=== PATIENT | female | born 1950 | race Caucasian/White ===

== ENCOUNTER → 2016-07-20 | Outpatient (CLI) | payer OTHER, BC ==
--- NOTE | 2016-07-20 15:36 | MAMMOGRAPHY REPORT ---
BILATERAL DIGITAL SCREENING MAMMOGRAM WITH CAD: 07/20/2016 CLINICAL HISTORY: Routine screening. Patient has no complaints. TECHNIQUE: Current study was also evaluated with a Computer Aided Detection (CAD) system. Bilatera l CC and MLO views were obtained. COMPARISON: Comparison is made to exams dated: 04/01/2015 mammogram, 05/20/2013 mammogram, 2 mammogram, 04/19/2011 mammogram, and 03/01/2010 mammogram - [facility]. BREAST COMPOSITION: The tissue of both breasts is heterogeneously dense, which may obscure small ma sses. FINDINGS: No suspicious masses, calcifications, or areas of architectural distortion are noted in e ither breast. There has been no significant interval change compared to prior exams. Scattered bilat eral benign-appearing calcifications are not significantly changed. IMPRESSION: ACR BI-RADS CATEGORY 2: BENIGN There is no mammographic evidence of malignancy. A 1 year screening mammogram is recommended. The p atient will receive written notification of the results. Approximately 10% of breast cancers are not detected with mammography. A negative mammographic repor t should not delay biopsy if a clinically suggestive mass is present. Lidia Dyer M.D. ah/:07/20/2016 14:16:33 Tape Sewing Machine Operator: Lilian GILMAN(R)(M), [facility] letter sent: Normal 1/2 BI-RADS Code: ACR BI-RADS Category 2: Benign
== END | disposition home or self-care (01) ==
LOC: C.MAMM 13:42
PROVIDERS: ATTEND Nurse Practitioner
DX: Z12.31 Encounter for screening mammogram for malignant neoplasm of breast (principal); M81.0 Age-related osteoporosis without current pathological fracture; M85.851 Other specified disorders of bone density and structure, right thigh; M85.852 Other specified disorders of bone density and structure, left thigh; Z78.0 Asymptomatic menopausal state

== ENCOUNTER → 2016-10-09 | Outpatient (CLI) | payer OTHER, BC ==
[2016-10-09 18:08] LABS: BLOOD UREA NITROGEN 24 mg/dl (7-18); BUN/CREATININE RATIO 29.5 (10-20); CALCIUM 8.6 mg/dl (8.5-10.1); CARBON DIOXIDE 27 mmol/L (21-32); CHLORIDE 107 mmol/L (98-107); CREATININE 0.81 mg/dl (0.60-1.20); GLUCOSE 87 mg/dl (70-99); POTASSIUM 3.9 mmol/L (3.5-5.1); SODIUM 141 mmol/L (136-145)
== END | disposition home or self-care (01) ==
LOC: C.LABPVFM 15:16
PROVIDERS: ATTEND Nurse Practitioner
DX: M85.80 Other specified disorders of bone density and structure, unspecified site (principal); E03.9 Hypothyroidism, unspecified

== ENCOUNTER → 2017-04-02 | Outpatient (CLI) | payer OTHER, BC ==
[2017-04-02 13:27] LABS: BLOOD UREA NITROGEN 15 mg/dl (7-18); BUN/CREATININE RATIO 21.4 (10-20); CALCIUM 9.2 mg/dl (8.5-10.1); CARBON DIOXIDE 31 mmol/L (21-32); CHLORIDE 103 mmol/L (98-107); CREATININE 0.71 mg/dl (0.60-1.20); GLUCOSE 89 mg/dl (70-99); POTASSIUM 3.9 mmol/L (3.5-5.1); SODIUM 142 mmol/L (136-145)
== END | disposition home or self-care (01) ==
LOC: C.LABPVFM 09:58
PROVIDERS: ATTEND Nurse Practitioner
DX: E03.9 Hypothyroidism, unspecified (principal)

== ENCOUNTER → 2017-08-09 | Outpatient (CLI) | payer OTHER, BC ==
--- NOTE | 2017-08-09 15:09 | MAMMOGRAPHY REPORT ---
BILATERAL DIGITAL SCREENING MAMMOGRAM TOMOSYNTHESIS WITH CAD: 08/09/2017 TECHNIQUE: Breast tomosynthesis in addition to standard 2D mammography was performed. Current study was also evaluated with a Computer Aided Detection (CAD) system. COMPARISON: Comparison is made to exams dated: 07/20/2016 mammogram, 04/01/2015 mammogram, 05/20/2013 mammogram, 04/23/2012 mammogram, 04/19/2011 mammogram, and 03/01/2010 mammogram - [facility]. BREAST COMPOSITION: The tissue of both breasts is heterogeneously dense, which may obscure small mas ses. FINDINGS: No suspicious masses, calcifications, or areas of architectural distortion are noted in ei ther breast. There has been no significant interval change compared to prior exams. IMPRESSION: ACR BI-RADS CATEGORY 1: NEGATIVE There is no mammographic evidence of malignancy. A 1 year screening mammogram is recommended. The pa tient will receive written notification of the results. Approximately 10% of breast cancers are not detected with mammography. A negative mammographic report should not delay biopsy if a clinically suggestive mass is present. Lidia Dyer M.D. /:08/09/2017 14:30:19 Emergency Manager: Janessa WEAVER)(Linda), [facility] letter sent: Normal 1/2 BI-RADS Code: ACR BI-RADS Category 1: Negative
== END | disposition home or self-care (01) ==
LOC: C.MAMM 14:03
PROVIDERS: ATTEND Nurse Practitioner
DX: Z12.31 Encounter for screening mammogram for malignant neoplasm of breast (principal)

== ENCOUNTER 2021-10-21 18:06 | Observation (INO) ==
[2021-10-21] MEDS ORDERED: SODIUM CHLORIDE 0.9% 250 ML IV PRN ×2 (19:53→21:19)
[2021-10-21 19:55] LABS: Alanine Aminotransferase 13 U/L (7-52); Albumin Globulin Ratio 1.7 (0.9-2); Albumin Level 4.3 gm/dl (3.4-5.0); Alkaline Phosphatase 91 U/L (34-104); Anion Gap 8 (3-11); BUN Creatinine Ratio 22.2 (10-20); Bilirubin,Total 0.4 mg/dl (0.2-1.0); Blood Urea Nitrogen 16 mg/dl (6-23); Calcium 9.3 mg/dl (8.5-10.1); Carbon Dioxide 24 mmol/L (21-32); Chloride 107 mmol/L (98-107); Creatinine Clr Calc Pharmacy 69.1 ml/min; Est GFR (African American) 97.7 ml/min; Est GFR (Non-African American) 84.3 ml/min; Globulin 2.6 gm/dl (2.5-4.0); Glucose 159 mg/dl (70-99(Fasting)); Sodium 139 mmol/L (136-145); Total Protein 6.9 gm/dl (6.0-8.3)
--- NOTE | 2021-10-21 20:02 | Emergency Department Note ---
History of Present Illness General Chief complaint: Abnormal Labs/Diagnostic Testing Stated complaint: HEMOGLOBIN LOW, 6.7 Time Seen by Provider: 10/21/21 19:41 Source: patient and family ( who is at the bedside) Mode of arrival: ambulatory Limitations: no limitations History of Present Illness Maximum Pain Intensity: 0 This patient is a 71-year-old female who was sent over from her doctor after she had a hemoglobin of 6. She said that she is followed by the [facility] and was seen a couple weeks ago for ingrown toenail she was put on antibiotics and swelling in both her feet at that time we did an ultrasound which she reports showed no DVT and she is scheduled have an echo which she has not had yet she is been short of breath for about a week. She says she can feel her heart beating in her ear fluttering when she is laying down. No chest pain or dizziness. No blood or melena stool no trauma or injury. No abdominal pain no dysuria hematuria she is not bleeding or bruising anywhere. No history of low hemoglobin. She is not a vegetarian Home Medications Medication Instructions Recorded Confirmed Type ascorbic acid 7.5 mg-vit E 7.5 2 tab PO BID tab 06/21/21 10/21/21 History unit-biotin 1,250 mcg chewable tablet (Hair,Skin,Nails with Biotin) calcium carb-vit D3-minerals 600 2 tab PO BID tab 06/21/21 10/21/21 History mg calcium-400 unit tablet multivitamin with minerals-folic 2 tab PO BID tab 06/21/21 10/21/21 History acid 200 mcg chewable tablet (Women's Multivitamin Gummies) levothyroxine 112 mcg capsule 112 mcg PO DAILY #30 cap 08/23/21 10/21/21 Rx amoxicillin 500 mg tablet 2,000 mg PO ONCE #4 tab 09/22/21 10/21/21 Rx furosemide 40 mg tablet 40 mg PO DAILY PRN #30 tab 09/28/21 10/21/21 Rx cyanocobalamin (vitamin B-12) 1,000 mcg IM .[id number] 10/21/21 10/21/21 History 1,000 mcg/mL injection kit Allergies Allergy/AdvReac Type Severity Reaction Status Date / Time venom-honey bee Allergy Verified 10/21/21 21:10 Past Med/Surg History Medical History Cellulitis of right leg COVID-19 Exposure to COVID-19 virus Pendulous breast Surgical History History of cholecystectomy 2004 History of endometrial ablation 2000 and 2002 History of gastric bypass with hernia repair- 2006 History of knee replacement 2009 History of tonsillectomy Family History Sister Breast cancer Mother Stroke Alzheimer disease Brother Heart disease Other Tongue cancer Denies family history of Ovarian cancer Prostate cancer Myocardial infarction Colorectal cancer Social History Smoking Status: Never smoker Second Hand Exposure: Yes; Hx Alcohol Use: Yes Alcohol type: beer and wine Alcohol Intake Frequency: Monthly or Less Hx Substance Use: No Preferred Language: Citizen Of The [place] Communication Ability: Effective Hearing Ability: Normal 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 Required: No marital status: Current Living Situation: Spouse current occupational status: employed 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 How many Children do You have: 3 Feels Safe at Home: Yes Childhood Exposure to Second-Hand Smoke: Yes caffeine: Yes Dental Care, Regularly: Yes Physical Activity Frequency: Daily Seatbelt Use: always Sunscreen Use: Yes Review of Systems A total of 10 systems reviewed and were otherwise negative Physical Exam Vital Signs Vital Signs - 24 hr 10/21/21 18:21 10/21/21 20:36 10/21/21 22:15 Temperature 36.7 C 36.6 C Temperature Source Oral Oral Pulse Rate 88 72 Pulse Rate [Finger] 74 Respiratory Rate 20 18 18 Respiratory Effort / Characteristics Non-Labored Respiratory Depth Normal Blood Pressure 164/76 H 157/60 H Blood Pressure [Left Arm] 160/75 H Blood Pressure Mean 105 92 Blood Pressure Mean [Left Arm] 103 Blood Pressure Position Lying Blood Pressure Position [Left Arm] Sitting Pulse Oximetry 100 98 97 Oxygen Delivery Method Room Air Room Air Sepsis Recent Fever Within 48 Hours No Sepsis New/Unexplained Change in Mental Status N/A Sepsis Action Taken by Nursing No Action Required 10/21/21 22:30 Temperature 36.8 C Temperature Source Oral Pulse Rate 71 Pulse Rate [Finger] Respiratory Rate 18 Respiratory Effort / Characteristics Respiratory Depth Blood Pressure 159/65 H Blood Pressure [Left Arm] Blood Pressure Mean 96 Blood Pressure Mean [Left Arm] Blood Pressure Position Blood Pressure Position [Left Arm] Pulse Oximetry 97 Oxygen Delivery Method Sepsis Recent Fever Within 48 Hours Sepsis New/Unexplained Change in Mental Status Sepsis Action Taken by Nursing General: Well developed well nourished somewhat pale older female who appears in no acute distress, breathing comfortably on room air. Normal speech HEENT: Normal cephalic atraumatic. Pupils are equal round and reactive to light. Extraocular movements are intact. Oropharynx is pink with moist mucous membranes. No swelling of the mouth lips or tongue. Neck: Supple with a midline trachea. No meningeal signs or stiffness, no JVD or bruits. No Stridor. Chest: Clear to auscultation bilaterally. No wheezes or rhonchi. No increased work of breathing. Heart: Regular rate and rhythm without murmurs or gallops. Abdomen: Soft nontender, nondistended without rebound guarding or rigidity. Extremities: No cyanosis clubbing or edema. No calf tenderness or assymetry Spine/Back. Non tender to palpation. No CVA tenderness Skin: Good turgor without rashes. Neurologic exam: Cranial nerves two through 12 are intact. Motor and sensation are intact and symmetrical throughout. Medical Decision Making Differential Diagnosis Anemia, GI bleed, bone marrow pathology, Red cell destruction, electrolyte or metabolic abnormality, infection Medical Records Attestation: I reviewed the patient's medical records. Home Medications Current Medication List: was personally reviewed by me Laboratory Data Attestation: I reviewed the patient's lab results. Result diagrams: 10/21/21 20:25 10/21/21 20:25 Lab Results 10/21/21 10/21/21 10/21/21 Range/Units 18:45 18:45 20:25 WBC Cancelled 3.76 L RBC Cancelled 3.84 L Hgb Cancelled 6.3 L* POC Hgb (12.0-16.0) g/dl Hct Cancelled 24.2 L POC Hct (37-47) % MCV Cancelled 63.0 L MCH Cancelled 16.4 L MCHC Cancelled 26.0 L RDW Std Deviation Cancelled 46.4 H RDW Coeff of Dax Cancelled 19.9 H Plt Count Cancelled 266 MPV Cancelled 8.7 Immature Gran % (Auto) Cancelled 0.0 Neut % (Auto) Cancelled 61.0 Lymph % (Auto) Cancelled 28.7 Maverick % (Auto) Cancelled 9.0 Eos % (Auto) Cancelled 0.8 Baso % (Auto) Cancelled 0.5 Neut # (Auto) Cancelled 2.29 Lymph # (Auto) Cancelled 1.08 L Maverick # (Auto) Cancelled 0.34 Eos # (Auto) Cancelled 0.03 Baso # (Auto) Cancelled 0.02 Immature Gran # (Auto) Cancelled 0.00 Absolute Nucleated RBC Cancelled Nucleated RBC % (auto) Cancelled Neutrophils % (Manual) Cancelled Band Neutrophils % Cancelled Lymphocytes % (Manual) Cancelled Prolymphocyte % Cancelled Reactive Lymphs % (Man) Cancelled Monocytes % (Manual) Cancelled Eosinophils % (Manual) Cancelled Basophils % (Manual) Cancelled Metamyelocytes % (Man) Cancelled Myelocytes % (Man) Cancelled Promyelocytes % (Man) Cancelled Blast Cells % (Manual) Cancelled Plasma Cell % (Manual) Cancelled Other Cells % Cancelled Nucleated RBC % Cancelled Neutrophils # (Manual) Cancelled Band Neutrophils # Cancelled Total Absolute Neuts Cancelled Lymphocytes # (Manual) Cancelled Prolymphocyte # Cancelled Reactive Lymphs # Cancelled Total Abs Lymphocytes Cancelled Monocytes # (Manual) Cancelled Eosinophils # (Manual) Cancelled Basophils # (Manual) Cancelled Metamyelocytes # (Man) Cancelled Myelocytes # (Manual) Cancelled Promyelocytes # (Man) Cancelled Blast Cells # (Man) Cancelled Plasma Cell # (Manual) Cancelled Other Cells # Cancelled Nucleated RBCs # (Man) Cancelled Hypersegmented Neuts Cancelled Hyposegmented Neuts Cancelled Hypogranular Neuts Cancelled Large Granular Lymphs Cancelled # Lrg Granular Lymphs Cancelled Hairy Cells Cancelled Smudge Cells Cancelled Toxic Granulation Cancelled Toxic Vacuolation Cancelled Dohle Bodies Cancelled Rudy Rods Cancelled Platelet Estimate Cancelled Hypogranular Platelets Cancelled Clumped Platelets Cancelled Giant Platelets Cancelled Platelet Satelliting Cancelled RBC Morphology Cancelled Polychromasia Cancelled 1+ Hypochromasia Cancelled Present Poikilocytosis Cancelled Basophilic Stippling Cancelled Anisocytosis Cancelled Microcytosis Cancelled Present Macrocytosis Cancelled Spherocytes Cancelled Pappenheimer Bodies Cancelled Sickle Cells Cancelled Target Cells Cancelled Tear Drop Cells Cancelled Ovalocytes Cancelled Stomatocytes Cancelled [place] Bodies Cancelled Echinocytes Cancelled Acanthocytes (Spur) Cancelled Rouleaux Cancelled RBC Agglutinates Cancelled Schistocytes Cancelled RBC Morph Comment Cancelled Sezary Cell Cancelled POC Sodium (135-144) mmol/L Sodium 139 (136-145) mmol/L POC Potassium (3.3-5.0) mmol/L Potassium TNP POC Chloride (101-112) mmol/L Chloride 107 (98-107) mmol/L Carbon Dioxide 24 (21-32) mmol/L POC Total CO2 (24-31) mmol/L Anion Gap 8 (3-11) POC Anion Gap (16-25) mmol/L POC BUN (7-18) mg/dl BUN 16 (6-23) mg/dl Creatinine 0.72 (0.6-1.2) mg/dl POC Creatinine (0.6-1.3) mg/dl Est Cr Clr Drug Dosing 69.1 ml/min Est GFR ( Amer) 97.7 ml/min Est GFR (Non-Af Amer) 84.3 ml/min BUN/Creatinine Ratio 22.2 H (10-20) Glucose 159 H (70-99(Fasting)) mg/dl POC Glucose (other) (70-99) mg/dl Calcium 9.3 (8.5-10.1) mg/dl POC Ioniz Calcium Kermit (1.12-1.32) mmol/l Iron (35-150) mcg/dl TIBC (250-450) mcg/dl Unsaturated IBC (155-355) mcg/dl Transferrin % Sat (15-50) % Ferritin (8-388) ng/ml Total Bilirubin 0.4 (0.2-1.0) mg/dl AST TNP ALT 13 (7-52) U/L Alkaline Phosphatase 91 (34-104) U/L Total Protein 6.9 (6.0-8.3) gm/dl Albumin 4.3 (3.4-5.0) gm/dl Globulin 2.6 (2.5-4.0) gm/dl Albumin/Globulin Ratio 1.7 (0.9-2) SARS-CoV-2, RNA, NAAT (NEGATIVE) Blood Type Blood Type Recheck Antibody Screen Crossmatch 10/21/21 10/21/2110/21/22 Range/Units 20:25 20:25 20:25 WBC RBC Hgb POC Hgb (12.0-16.0) g/dl Hct POC Hct (37-47) % MCV MCH MCHC RDW Std Deviation RDW Coeff of Dax Plt Count MPV Immature Gran % (Auto) Neut % (Auto) Lymph % (Auto) Maverick % (Auto) Eos % (Auto) Baso % (Auto) Neut # (Auto) Lymph # (Auto) Maverick # (Auto) Eos # (Auto) Baso # (Auto) Immature Gran # (Auto) Absolute Nucleated RBC Nucleated RBC % (auto) Neutrophils % (Manual) Band Neutrophils % Lymphocytes % (Manual) Prolymphocyte % Reactive Lymphs % (Man) Monocytes % (Manual) Eosinophils % (Manual) Basophils % (Manual) Metamyelocytes % (Man) Myelocytes % (Man) Promyelocytes % (Man) Blast Cells % (Manual) Plasma Cell % (Manual) Other Cells % Nucleated RBC % Neutrophils # (Manual) Band Neutrophils # Total Absolute Neuts Lymphocytes # (Manual) Prolymphocyte # Reactive Lymphs # Total Abs Lymphocytes Monocytes # (Manual) Eosinophils # (Manual) Basophils # (Manual) Metamyelocytes # (Man) Myelocytes # (Manual) Promyelocytes # (Man) Blast Cells # (Man) Plasma Cell # (Manual) Other Cells # Nucleated RBCs # (Man) Hypersegmented Neuts Hyposegmented Neuts Hypogranular Neuts Large Granular Lymphs # Lrg Granular Lymphs Hairy Cells Smudge Cells Toxic Granulation Toxic Vacuolation Dohle Bodies Rudy Rods Platelet Estimate Hypogranular Platelets Clumped Platelets Giant Platelets Platelet Satelliting RBC Morphology Polychromasia Hypochromasia Poikilocytosis Basophilic Stippling Anisocytosis Microcytosis Macrocytosis Spherocytes Pappenheimer Bodies Sickle Cells Target Cells Tear Drop Cells Ovalocytes Stomatocytes [place] Bodies Echinocytes Acanthocytes (Spur) Rouleaux RBC Agglutinates Schistocytes RBC Morph Comment Sezary Cell POC Sodium (135-144) mmol/L Sodium (136-145) mmol/L POC Potassium (3.3-5.0) mmol/L Potassium 3.4 L POC Chloride (101-112) mmol/L Chloride (98-107) mmol/L Carbon Dioxide (21-32) mmol/L POC Total CO2 (24-31) mmol/L Anion Gap (3-11) POC Anion Gap (16-25) mmol/L POC BUN (7-18) mg/dl BUN (6-23) mg/dl Creatinine (0.6-1.2) mg/dl POC Creatinine (0.6-1.3) mg/dl Est Cr Clr Drug Dosing ml/min Est GFR ( Amer) ml/min Est GFR (Non-Af Amer) ml/min BUN/Creatinine Ratio (10-20) Glucose (70-99(Fasting)) mg/dl POC Glucose (other) (70-99) mg/dl Calcium (8.5-10.1) mg/dl POC Ioniz Calcium Kermit (1.12-1.32) mmol/l Iron 16 L (35-150) mcg/dl TIBC 502 H (250-450) mcg/dl Unsaturated IBC 486 H (155-355) mcg/dl Transferrin % Sat 3 L (15-50) % Ferritin 2.9 L (8-388) ng/ml Total Bilirubin (0.2-1.0) mg/dl AST 17 ALT (7-52) U/L Alkaline Phosphatase (34-104) U/L Total Protein (6.0-8.3) gm/dl Albumin (3.4-5.0) gm/dl Globulin (2.5-4.0) gm/dl Albumin/Globulin Ratio (0.9-2) SARS-CoV-2, RNA, NAAT (NEGATIVE) Blood Type B Positive Blood Type Recheck Antibody Screen NEGATIVE Crossmatch See Detail 10/21/21 10/21/21 10/21/21 Range/Units 20:28 20:30 21:56 WBC RBC Hgb POC Hgb 7.8 L (12.0-16.0) g/dl Hct POC Hct 23 L (37-47) % MCV MCH MCHC RDW Std Deviation RDW Coeff of Dax Plt Count MPV Immature Gran % (Auto) Neut % (Auto) Lymph % (Auto) Maverick % (Auto) Eos % (Auto) Baso % (Auto) Neut # (Auto) Lymph # (Auto) Maverick # (Auto) Eos # (Auto) Baso # (Auto) Immature Gran # (Auto) Absolute Nucleated RBC Nucleated RBC % (auto) Neutrophils % (Manual) Band Neutrophils % Lymphocytes % (Manual) Prolymphocyte % Reactive Lymphs % (Man) Monocytes % (Manual) Eosinophils % (Manual) Basophils % (Manual) Metamyelocytes % (Man) Myelocytes % (Man) Promyelocytes % (Man) Blast Cells % (Manual) Plasma Cell % (Manual) Other Cells % Nucleated RBC % Neutrophils # (Manual) Band Neutrophils # Total Absolute Neuts Lymphocytes # (Manual) Prolymphocyte # Reactive Lymphs # Total Abs Lymphocytes Monocytes # (Manual) Eosinophils # (Manual) Basophils # (Manual) Metamyelocytes # (Man) Myelocytes # (Manual) Promyelocytes # (Man) Blast Cells # (Man) Plasma Cell # (Manual) Other Cells # Nucleated RBCs # (Man) Hypersegmented Neuts Hyposegmented Neuts Hypogranular Neuts Large Granular Lymphs # Lrg Granular Lymphs Hairy Cells Smudge Cells Toxic Granulation Toxic Vacuolation Dohle Bodies Rudy Rods Platelet Estimate Hypogranular Platelets Clumped Platelets Giant Platelets Platelet Satelliting RBC Morphology Polychromasia Hypochromasia Poikilocytosis Basophilic Stippling Anisocytosis Microcytosis Macrocytosis Spherocytes Pappenheimer Bodies Sickle Cells Target Cells Tear Drop Cells Ovalocytes Stomatocytes [place] Bodies Echinocytes Acanthocytes (Spur) Rouleaux RBC Agglutinates Schistocytes RBC Morph Comment Sezary Cell POC Sodium 142 (135-144) mmol/L Sodium (136-145) mmol/L POC Potassium 3.4 (3.3-5.0) mmol/L Potassium POC Chloride 106 (101-112) mmol/L Chloride (98-107) mmol/L Carbon Dioxide (21-32) mmol/L POC Total CO2 24 (24-31) mmol/L Anion Gap (3-11) POC Anion Gap 16.0 (16-25) mmol/L POC BUN 14 (7-18) mg/dl BUN (6-23) mg/dl Creatinine (0.6-1.2) mg/dl POC Creatinine 0.6 (0.6-1.3) mg/dl Est Cr Clr Drug Dosing ml/min Est GFR ( Amer) ml/min Est GFR (Non-Af Amer) ml/min BUN/Creatinine Ratio (10-20) Glucose (70-99(Fasting)) mg/dl POC Glucose (other) 100 H (70-99) mg/dl Calcium (8.5-10.1) mg/dl POC Ioniz Calcium Kermit 1.18 (1.12-1.32) mmol/l Iron (35-150) mcg/dl TIBC (250-450) mcg/dl Unsaturated IBC (155-355) mcg/dl Transferrin % Sat (15-50) % Ferritin (8-388) ng/ml Total Bilirubin (0.2-1.0) mg/dl AST ALT (7-52) U/L Alkaline Phosphatase (34-104) U/L Total Protein (6.0-8.3) gm/dl Albumin (3.4-5.0) gm/dl Globulin (2.5-4.0) gm/dl Albumin/Globulin Ratio (0.9-2) SARS-CoV-2, RNA, NAAT NEGATIVE (NEGATIVE) Blood Type Blood Type Recheck B Positive Antibody Screen Crossmatch ECG Data Attestation: I personally reviewed and interpreted this ECG as follows: Indication: + weakness Rate (beats per minute): 86 Rhythm: + normal sinus ECG Intervals/blocks: + Normal QRS, + Normal QT and + Normal [place] ECG [place]: + Normal ECG ST segments: + Normal ST segments ECG Findings: no PACs or no PVCs Comparison ECG Date: no prior available MDM Narrative This patient was sent over after being found to be significantly anemic. she denies any GI blood loss and her vital signs are stable. She was typed and cr ossed for the likely transfusion, blood work was obtained here and she has stable vital signs and her EKG does not suggest any ischemia. Her hemoglobin recheck was 6.2. I did a rectal exam and she brown stool which was guaiac negative. I do think she needs to be admitted for further treatment and evaluation she will likely need a transfusion I have typed and crossed her for 2 units and also consented her for blood transfusion I explained the risk and the benefits to the and the patient and they both freely consent. His iron level is low and his iron studies are abnormal and may just be this is more of an iron deficiency anemia. I have discussed the case with Dr. Cain who will see the patient in the ED. Continuous cardiac monitoring: An order was placed in the EMR for continuous cardiac monitoring. Upon my interpretation the patient is noted to be in normal sinus rhythm with a rate of 73 Impression & Plan Anemia, Weakness, Lab test negative for COVID-19 virus, Palpitation Discharge Plan Visit Data Chief Complaint: Abnormal Labs/Diagnostic Testing Stated Complaint: HEMOGLOBIN LOW, 6.7 ED Provider: Sterling De Leon Discharge Problem: Anemia, Weakness, Lab test negative for COVID-19 virus, Palpitation Forms Stand Alone Forms: [facility] [employer] Prescriptions Prescriptions: No Action levothyroxine 112 mcg capsule 112 mcg PO DAILY Qty: 30 RF: 2 amoxicillin 500 mg tablet 2,000 mg PO ONCE Qty: 4 RF: 0 furosemide 40 mg tablet 40 mg PO DAILY PRN (Reason: edema) Qty: 30 RF: 5 calcium carbonate-vit D3-min 600 mg calcium- 400 unit tablet 2 tab PO BID RF: 0 Hair, Skin, Nails with Biotin 7.5-7.5-1,250 mg-unit-mcg tablet,chewable 2 tab PO BID RF: 0 Women's Multivitamin Gummies 200 mcg tablet,chewable 2 tab PO BID RF: 0 cyanocobalamin (vitamin B-12) 1,000 mcg/mL kit 1,000 mcg IM .[id number] RF: 0 Referrals Referrals: Chandrika Dickinson CRNP [Primary Care Provider] - Discharge Problem: Anemia Qualifiers: Anemia type: unspecified type Qualified Code(s): D64.9 - Anemia, unspecified
[2021-10-21 20:40] LABS: iSTAT Creatinine 0.6 mg/dl (0.6-1.3); iSTAT Hemoglobin 7.8 g/dl (12.0-16.0); iSTAT Ionized Calcium 1.18 mmol/l (1.12-1.32); iSTAT Potassium 3.4 mmol/L (3.3-5.0)
[2021-10-21 20:59] LABS: Hematocrit (blood only) 24.2 % (37-47); Hemoglobin 6.3 g/dL (12.0-16.0); Mean Corpuscular Hemoglobin 16.4 pg (25-34); Mean Platelet Volume 8.7 fL (7.4-10.4); Platelet Count 266 K/uL (130-400); RDW Coefficient of Variation 19.9 % (11.5-14.5); RDW Standard Deviation 46.4 fL (36.4-46.3); Red Blood Count 3.84 M/uL (4.2-5.4); White Blood Count 3.76 K/uL (4.8-10.8)
[2021-10-21 21:14] LABS: Potassium 3.4 mmol/L (3.5-5.1)
[2021-10-21 21:33] LABS: Basophils # (auto) 0.02 K/uL (0-0.2); Basophils % (auto) 0.5 %; Eosinophils # (auto) 0.03 K/uL (0-0.5); Eosinophils % (auto) 0.8 %; Hypochromasia Present; Lymphocytes # (auto) 1.08 K/uL (1.2-3.4); Lymphocytes % (auto) 28.7 %; Microcytosis Present; Monocytes # (auto) 0.34 K/uL (0.11-0.59); Neutrophils # (auto) 2.29 K/uL (1.4-6.5); Polychromasia 1+
--- NOTE | 2021-10-21 22:02 | History & Physical Report ---
Date of Service October 21, 2021 Assessment & Plan (1) Anemia: Plan: 71yo female presenting with symptomatic anemia - Hgb=6.3, Hct=24.2, microcytic with MCV=63. No history of prior. No obvious source of blood loss. Hemoccult is NEGATIVE in ER. -Check iron studies - Ferritin, TIBC, Fe and saturation -Check B12 and Folate -Check reticulocyte count -Check peripheral smear -Transfusion 2 units PRBCs -Repeat CBC in AM -Consider Hematology consultation (2) Hypothyroidism: Plan: Chronic. Synthroid recently increased by PCP -Continue Synthroid 112mcg po daily (3) Edema of left lower extremity: Plan: LLE with warmth, edema -Check LLE doppler for possible DVT Plan: F/E/N - Heplock. K=3.4 (will hold repletion - patient to receive PRBCs x 2 units), regular diet as tolerated Code - Full Dispo - Admit to medical History of Present Illness Chief Complaint: Anemia Primary Care Provider: LILY Pringle Odilon is a 71yo female s/p Gastric Bypass surgery in 2006, B12 deficiency on injections q 3 months, GERD, Hypothyroidism presenting with symptomatic anemia. She had blood work this AM and was notified of low Hgb. She has been experiencing dyspnea with minimal exertion such as stairs as well as palpitations and pulsatile tinnitus in her right ear. She has no prior history of anemia. She denies melena, hematochezia, hematuria, bleeding, bruising, icterus or jaundice. She is post-menopausal, s/p endometrial ablation x 2 (2000 and 2002) with no vaginal bleeding reported. She eats a regular diet with no restriction. Denies chest pain, tightness, syncope, dizziness. Patient has been seeing her PC for concern for progressive bilateral LE edema. She had a bilateral LE venous doppler performed on 09/28/21 which was unremarkable. She is scheduled to have an echocardiogram next week. The only other thing out of the ordinary for her is that she had her 4th Covid shot p erformed on 10/06/21 after which she felt like her "veins were itchy" all over her body. She developed chills, GOMEZ and felt itchy all over. No rash, edema, SOB. She took a Benadryl with relief. ER Course: NSS Stool Hemoccult NEGATIVE Allergies Allergy/AdvReac Type Severity Reaction Status Date / Time venom-honey bee Allergy Verified 10/21/21 21:10 Home Medications Medication Instructions Recorded Confirmed Type ascorbic acid 7.5 mg-vit E 7.5 2 tab PO BID tab 06/21/21 10/21/21 History unit-biotin 1,250 mcg chewable tablet (Hair,Skin,Nails with Biotin) calcium carb-vit D3-minerals 600 2 tab PO BID tab 06/21/21 10/21/21 History mg calcium-400 unit tablet multivitamin with minerals-folic 2 tab PO BID tab 06/21/21 10/21/21 History acid 200 mcg chewable tablet (Women's Multivitamin Gummies) levothyroxine 112 mcg capsule 112 mcg PO DAILY #30 cap 08/23/21 10/21/21 Rx amoxicillin 500 mg tablet 2,000 mg PO ONCE #4 tab 09/22/21 10/21/21 Rx furosemide 40 mg tablet 40 mg PO DAILY PRN #30 tab 09/28/21 10/21/21 Rx cyanocobalamin (vitamin B-12) 1,000 mcg IM .[id number] 10/21/21 10/21/21 History 1,000 mcg/mL injection kit Past Med/Surg History Medical History Cellulitis of right leg COVID-19 Exposure to COVID-19 virus Pendulous breast Surgical History History of cholecystectomy 2003 History of endometrial ablation 2000 and 2002 History of gastric bypass with hernia repair- 2006 History of knee replacement 2009 History of tonsillectomy Family History Sister Breast cancer Mother Stroke Alzheimer disease Brother Heart disease Other Tongue cancer Denies family history of Ovarian cancer Prostate cancer Myocardial infarction Colorectal cancer Social History Smoking Status: Never smoker Second Hand Exposure: No; Do You Dip or Chew Tobacco: No; Tobacco Cessation Education Requested by Patient: No Hx Alcohol Use: Yes Alcohol type: beer and wine Alcohol Intake Frequency: Monthly or Less Hx Substance Use: No Preferred Language: Lao Communication Ability: Effective Hearing Ability: Normal Automation Controls Specialist Required: No Beliefs That Will Affect Care: None marital status: Current Living Situation: Spouse current occupational status: employed 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 How many Children do You have: 3 Other Information That Helps Us Care for You: No Feels Safe at Home: Yes Safety Concerns: Feels Safe At This Time Childhood Exposure to Second-Hand Smoke: Yes caffeine: Yes Dental Care, Regularly: Yes Physical Activity Frequency: Daily Seatbelt Use: always Sunscreen Use: Yes Assistive Devices: Glasses Review of Systems Review of Systems: All systems reviewed & are unremarkable except as noted in HPI & below Physical Exam Physical Exam: General: patient resting comfortably, NAD, non-toxic in appearance, AA&O x 4 Skin: warm, dry, intact, no rashes or lesions, +pallor conjunctiva, oral mucosa HEENT: NC/AT, PERRL, EOMI, anicteric sclera, conjunctiva without injection, external ear normal to inspection and nontender, nares patent, moist mucus membranes, dentition intact, no oropharyngeal lesions, neck supple, trachea midline, no LAD, no thyromegaly, no JVD Heart: +S1/S2, regular, no m/r/g Lungs: equal air entry bilaterally, no rales/rhonchi/wheezes Abd: +BS, soft, NT/ND, no masses/organomegaly/ascites Ext: warm, 2+ pulses in UE/LE bilaterally, no clubbing/cyanosis, LLE warm and swollen in comparison to RLE Neuro: nonfocal, patient AA&O x 4, speech intact, no facial droop, moving all extremities on command with equal strength 5/5 Results & Data Results & Data ([facility]) Vital Signs (Past 12 Hours) Vital Signs Temp Pulse Pulse Resp BP BP Pulse Ox 10/21/21 20:36 74 18 160/75 H 98 10/21/21 18:21 36.7 C 88 20 164/76 H 100 Laboratory Results Laboratory Results WBC 3.76 K/uL (4.8-10.8) L 10/21/21 20:25 RBC 3.84 M/uL (4.2-5.4) L 10/21/21 20:25 Hgb 6.3 g/dL (12.0-16.0) L* 10/21/21 20:25 POC Hgb 7.8 g/dl (12.0-16.0) L 10/21/21 20: Hct 24.2 % (37-47) L 10/21/21 20: POC Hct 23 % (37-47) L 10/21/21 20: MCV 63.0 fL (80-100) L 10/21/21 20: MCH 16.4 pg (25-34) L 10/21/21 20: MCHC 26.0 g/dL (32-36) L 10/21/21: RDW Std Deviation 46.4 fL (36.4-46.3) H 10/21/21: RDW Coeff of Dax 19.9 % (11.5-14.5) H 10/21/21: Plt Count 266 K/uL (130-400) 10/21/21: MPV 8.7 fL (7.4-10.4) 10/21/21 20: Immature Gran % (Auto) 0.0 % 10/21/21 20: Neut % (Auto) 61.0 % 10/21/21 20:25 Lymph % (Auto) 28.7 % 10/21/21 20:25 [place] % (Auto) 9.0 % 10/21/21 20:25 Eos % (Auto) 0.8 % 10/21/21: Baso % (Auto) 0.5 % 10/21/21: Neut # (Auto) 2.29 K/uL (1.4-6.5) 10/21/21 20: Lymph # (Auto) 1.08 K/uL (1.2-3.4) L 10/21/21 20: [place] # (Auto) 0.34 K/uL (0.11-0.59) 10/21/21 20: Eos # (Auto) 0.03 K/uL (0-0.5) 10/21/21: Baso # (Auto) 0.02 K/uL (0-0.2) 10/21/21 20: Immature Gran # (Auto) 0.00 K/uL (0.00-0.02) 10/21/21 20: Absolute Nucleated RBC Cancelled 10/21/21 18:45 Nucleated RBC % (auto) Cancelled 10/21/21 18:45 Neutrophils % (Manual) Cancelled 10/21/21 18:45 Band Neutrophils % Cancelled 10/21/21 18:45 Lymphocytes % (Manual) Cancelled 10/21/21 18:45 Prolymphocyte % Cancelled 10/21/21 18:45 Reactive Lymphs % (Man) Cancelled 10/21/21 18:45 Monocytes % (Manual) Cancelled 10/21/21 18:45 Eosinophils % (Manual) Cancelled 10/21/21 18:45 Basophils % (Manual) Cancelled 10/21/21 18:45 Metamyelocytes % (Man) Cancelled 10/21/21 18:45 Myelocytes % (Man) Cancelled 10/21/21 18:45 Promyelocytes % (Man) Cancelled 10/21/21 18:45 Blast Cells % (Manual) Cancelled 10/21/21 18:45 Plasma Cell % (Manual) Cancelled 10/21/21 18:45 Other Cells % Cancelled 10/21/21 18:45 Nucleated RBC % Cancelled 10/21/21 18:45 Neutrophils # (Manual) Cancelled 10/21/21 18:45 Band Neutrophils # Cancelled 10/21/21 18:45 Total Absolute Neuts Cancelled 10/21/21 18:45 Lymphocytes # (Manual) Cancelled 10/21/21 18:45 Prolymphocyte # Cancelled 10/21/21 18:45 Reactive Lymphs # Cancelled 10/21/21 18:45 Total Abs Lymphocytes Cancelled 10/21/21 18:45 Monocytes # (Manual) Cancelled 10/21/21 18:45 Eosinophils # (Manual) Cancelled 10/21/21 18:45 Basophils # (Manual) Cancelled 10/21/21 18:45 Metamyelocytes # (Man) Cancelled 10/21/21 18:45 Myelocytes # (Manual) Cancelled 10/21/21 18:45 Promyelocytes # (Man) Cancelled 10/21/21 18:45 Blast Cells # (Man) Cancelled 10/21/21 18:45 Plasma Cell # (Manual) Cancelled 10/21/21 18:45 Other Cells # Cancelled 10/21/21 18:45 Nucleated RBCs # (Man) Cancelled 10/21/21 18:45 Hypersegmented Neuts Cancelled 10/21/21 18:45 Hyposegmented Neuts Cancelled 10/21/21 18:45 Hypogranular Neuts Cancelled 10/21/21 18:45 Large Granular Lymphs Cancelled 10/21/21 18:45 # Lrg Granular Lymphs Cancelled 10/21/21 18:45 Hairy Cells Cancelled 10/21/21 18:45 Smudge Cells Cancelled 10/21/21 18:45 Toxic Granulation Cancelled 10/21/21 18:45 Toxic Vacuolation Cancelled 10/21/21 18:45 Dohle Bodies Cancelled 10/21/21 18:45 Rudy Rods Cancelled 10/21/21 18:45 Platelet Estimate Cancelled 10/21/21 18:45 Hypogranular Platelets Cancelled 10/21/21 18:45 Clumped Platelets Cancelled 10/21/21 18:45 Giant Platelets Cancelled 10/21/21 18:45 Platelet Satelliting Cancelled 10/21/21 18:45 RBC Morphology Cancelled 10/21/21 18:45 Polychromasia 1+ 10/21/21 20:25 Hypochromasia Present 10/21/21 20:25 Poikilocytosis Cancelled 10/21/21 18:45 Basophilic Stippling Cancelled 10/21/21 18:45 Anisocytosis Cancelled 10/21/21 18:45 Microcytosis Present 10/21/21 20:25 Macrocytosis Cancelled 10/21/21 18:45 Spherocytes Cancelled 10/21/21 18:45 Pappenheimer Bodies Cancelled 10/21/21 18:45 Sickle Cells Cancelled 10/21/21 18:45 Target Cells Cancelled 10/21/21 18:45 Tear Drop Cells Cancelled 10/21/21 18:45 Ovalocytes Cancelled 10/21/21 18:45 Stomatocytes Cancelled 10/21/21 18:45 [place] Bodies Cancelled 10/21/21 18:45 Echinocytes Cancelled 10/21/21 18:45 Acanthocytes (Spur) Cancelled 10/21/21 18:45 Rouleaux Cancelled 10/21/21 18:45 RBC Agglutinates Cancelled 10/21/21 18:45 Schistocytes Cancelled 10/21/21 18:45 RBC Morph Comment Cancelled 10/21/21 18:45 Sezary Cell Cancelled 10/21/21 18:45 POC Sodium 142 mmol/L (135-144) 10/21/21 20:28 Sodium 139 mmol/L (136-145) 10/21/21 18:45 POC Potassium 3.4 mmol/L (3.3-5.0) 10/21/21 20:28 Potassium 3.4 mmol/L (3.5-5.1) L 10/21/21 20:25 POC Chloride 106 mmol/L (101-112) 10/21/21 20:28 Chloride 107 mmol/L (98-107) 10/21/21 18:45 Carbon Dioxide 24 mmol/L (21-32) 10/21/21 18:45 POC Total CO2 24 mmol/L (24-31) 10/21/21 20:28 Anion Gap 8 (3-11) 10/21/21 18:45 POC Anion Gap 16.0 mmol/L (16-25) 10/21/21 20:28 POC BUN 14 mg/dl (7-18) 10/21/21 20:28 BUN 16 mg/dl (6-23) 10/21/21 18:45 Creatinine 0.72 mg/dl (0.6-1.2) 10/21/21 18:45 POC Creatinine 0.6 mg/dl (0.6-1.3) 10/21/21 20:28 Est Cr Clr Drug Dosing 69.1 ml/min 10/21/21 18:45 Est GFR ( Amer) 97.7 ml/min 10/21/21 18:45 Est GFR (Non-Af Amer) 84.3 ml/min 10/21/21 18:45 BUN/Creatinine Ratio 22.2 (10-20) H 10/21/21 18:45 Glucose 159 mg/dl (70-99(Fasting)) H 10/21/21 18:45 POC Glucose (other) 100 mg/dl (70-99) H 10/21/21 20:28 Calcium 9.3 mg/dl (8.5-10.1) 10/21/21 18:45 POC Ioniz Calcium [place] 1.18 mmol/l (1.12-1.32) 10/21/21 20:28 Iron 16 mcg/dl (35-150) L 10/21/21 20:25 TIBC 502 mcg/dl (250-450) H 10/21/21 20:25 Unsaturated IBC 486 mcg/dl (155-355) H 10/21/21 20:25 Transferrin % Sat 3 % (15-50) L 10/21/21 20:25 Ferritin 2.9 ng/ml (8-388) L 10/21/21 20:25 Total Bilirubin 0.4 mg/dl (0.2-1.0) 10/21/21 18:45 AST 17 U/L (13-39) 10/21/21 20:25 ALT 13 U/L (7-52) 10/21/21 18:45 Alkaline Phosphatase 91 U/L (34-104) 10/21/21 18:45 Total Protein 6.9 gm/dl (6.0-8.3) 10/21/21 18:45 Albumin 4.3 gm/dl (3.4-5.0) 10/21/21 18:45 Globulin 2.6 gm/dl (2.5-4.0) 10/21/21 18:45 Albumin/Globulin Ratio 1.7 (0.9-2) 10/21/21 18:45 Vitamin B12 410 pg/ml (180-914) 10/21/21 22:46 Folate > 22.30 ng/ml (>5.38) 10/21/21 22:46 SARS-CoV-2, RNA, NAAT NEGATIVE (NEGATIVE) 10/21/21 21:56 Blood Type B Positive 10/21/21 20:25 Blood Type Recheck B Positive 10/21/21 20:30 Antibody Screen NEGATIVE 10/21/21 20:25 Crossmatch See Detail 10/21/21 20:25 ECG Additional Comments: EKG wtih NSR at 86, normal axis, HU=299, QRS=72, POj=281, no acute ischemic changes PG Care Time/CCT Total # of Minutes Spent Total Time Spent with Patient: Total time spent is greater than 50% in coordination of care (as documented) at patient's floor/unit and/or counseling patient: Coding Level of Care Code 33595 Initial Inpt Care Lvl 2 Diagnoses Anemia D64.9 Anemia type: unspecified type Hypothyroidism E03.9 Edema of left lower extremity R60.0 (1) Anemia Anemia type: unspecified type Qualified Code(s): D64.9 - Anemia, unspecified
[2021-10-21 22:06] LABS: Ferritin 2.9 ng/ml (8-388)
[2021-10-22 00:03] LABS: Folate (Folic Acid) > 22.30 ng/ml (>5.38)
[2021-10-22 00:04] LABS: Vitamin B12 410 pg/ml (180-914)
[2021-10-22] MEDS ORDERED: ONDANSETRON INJ 2 MG/ML 2 ML VIAL IV PRN (00:49)
[2021-10-22 01:32] LABS: Reticulocyte % 1.1 % (0.5-2.0); Reticulocytes # 0.04 10^6/uL (0.02-0.10)
[2021-10-22] MEDS: ACETAMINOPHEN 325 MG TAB PO PRN ×3 (04:00→20:24)
[2021-10-22] MEDS: LEVOTHYROXINE SODIUM 112 MCG TABLET PO SCH (06:28)
[2021-10-22 08:18] LABS: Hematocrit (blood only) 29.1 % (37-47); Hemoglobin 8.5 g/dL (12.0-16.0); Mean Corpuscular Hemoglobin 19.4 pg (25-34); Mean Corpuscular Hgb Conc 29.2 g/dL (32-36); Mean Corpuscular Volume 66.4 fL (80-100); Mean Platelet Volume 9.2 fL (7.4-10.4); Platelet Count 231 K/uL (130-400); RDW Coefficient of Variation 22.2 % (11.5-14.5); RDW Standard Deviation 54.2 fL (36.4-46.3); Red Blood Count 4.38 M/uL (4.2-5.4); White Blood Count 3.02 K/uL (4.8-10.8)
[2021-10-22 08:31] LABS: Anisocytosis Present; Basophils # (auto) 0.04 K/uL (0-0.2); Basophils % (auto) 1.3 %; Eosinophils # (auto) 0.05 K/uL (0-0.5); Eosinophils % (auto) 1.7 %; Hypochromasia Present; Lymphocytes # (auto) 1.03 K/uL (1.2-3.4); Lymphocytes % (auto) 34.1 %; Microcytosis Present; Monocytes # (auto) 0.41 K/uL (0.11-0.59); Monocytes % (auto) 13.6 %; Neutrophils # (auto) 1.49 K/uL (1.4-6.5); Neutrophils % (auto) 49.3 %; Polychromasia 1+
[2021-10-22 08:39] LABS: Calcium 8.7 mg/dl (8.5-10.1); Potassium 3.8 mmol/L (3.5-5.1)
[2021-10-22 08:45] LABS: BUN Creatinine Ratio 22.6 (10-20); Creatinine Clr Calc Pharmacy 94.4 ml/min; Est GFR (African American) 110.7 ml/min; Est GFR (Non-African American) 95.5 ml/min
[2021-10-22] MEDS: PANTOprazole 40 MG TAB PO SCH (11:15)
--- NOTE | 2021-10-22 13:17 | Gastrointestinal Consultation ---
Date of Consultation October 22, 2021 Supervising Physician Co-Signing Physician Notes Anemia in a gastric bypass patient. She is no taking nsaid's. Feels slightly better but has not been walking around after transfusion. Likely outpatient egd/colon will be arranged for her. If signs of gi bleeding, possible inpatient egd/colon early next week if still here. If hgb remains stable and no signs of overt gi bleed, ok to dc home from a gi persecptive tomorrow on once daily ppi and outpatient scopes will be arranged for her. History of Present Illness Reason for Consultation: Anemia Requesting Physician: Dr. Martin Attending Physician: Isaias Martin MD History of Present Illness 71 yo fm with a history of gastric bypass, colonoscopy over 15 years ago (then reports having a cologuard) admitted for anemia. No symptoms reported to me other than mild weakness, no overt bleeding repoted of hematemesis/hematochezia, no abd pain, nausea, vomiting, diarrhea. No recent nsaid use. No known history of cirrhosis. Prior gastric bypass but states never had an egd. Feels some burning in her upper chest at times that she thinks is reflux, no dysphagia. Allergies Allergy/AdvReac Type Severity Reaction Status Date / Time venom-honey bee Allergy Verified 10/21/21 21:10 Home Medications Medication Instructions Recorded Confirmed Type ascorbic acid 7.5 mg-vit E 7.5 2 tab PO BID tab 06/21/21 10/21/21 History unit-biotin 1,250 mcg chewable tablet (Hair,Skin,Nails with Biotin) calcium carb-vit D3-minerals 600 2 tab PO BID tab 06/21/21 10/21/21 History mg calcium-400 unit tablet multivitamin with minerals-folic 2 tab PO BID tab 06/21/21 10/21/21 History acid 200 mcg chewable tablet (Women's Multivitamin Gummies) levothyroxine 112 mcg capsule 112 mcg PO DAILY #30 cap 08/23/21 10/21/21 Rx amoxicillin 500 mg tablet 2,000 mg PO ONCE #4 tab 09/22/21 10/21/21 Rx furosemide 40 mg tablet 40 mg PO DAILY PRN #30 tab 09/28/21 10/21/21 Rx cyanocobalamin (vitamin B-12) 1,000 mcg IM .[id number] 10/21/21 10/21/21 History 1,000 mcg/mL injection kit Patient History Medical History Cellulitis of right leg COVID-19 Exposure to COVID-19 virus Pendulous breast Surgical History History of cholecystectomy 2003 History of endometrial ablation 2000 and 2002 History of gastric bypass with hernia repair- 2006 History of knee replacement 2009 History of tonsillectomy Family History Sister Breast cancer Mother Stroke Alzheimer disease Brother Heart disease Other Tongue cancer Denies family history of Ovarian cancer Prostate cancer Myocardial infarction Colorectal cancer Social History Smoking Status: Never smoker Second Hand Exposure: No; Do You Dip or Chew Tobacco: No; Tobacco Cessation Education Requested by Patient: No Hx Alcohol Use: Yes Alcohol type: beer and wine Alcohol Intake Frequency: Mo nthly or Less Hx Substance Use: No Preferred Language: Maltese Communication Ability: Effective Hearing Ability: Normal Food Service Clerk Required: No Beliefs That Will Affect Care: None marital status: Current Living Situation: Spouse current occupational status: employed 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 How many Children do You have: 3 Other Information That Helps Us Care for You: No Feels Safe at Home: Yes Safety Concerns: Feels Safe At This Time Childhood Exposure to Second-Hand Smoke: Yes caffeine: Yes Dental Care, Regularly: Yes Physical Activity Frequency: Daily Seatbelt Use: always Sunscreen Use: Yes Assistive Devices: Glasses Review of Systems Review of Systems: All systems reviewed & are unremarkable except as noted in HPI & below Physical Exam Physical Exam: Obese fm wearing glasses in nad Eyes: PERRL, conjunctivae normal, anicteric sclerae Respiratory: normal respiratory effort, lungs clear to auscultation Gastrointestinal (Abdomen): normal bowel sounds, soft, nontender, no hepatosplenomegaly Skin: no rashes, warm and dry Results & Data ([facility]) Vital Signs (Past 12 Hours) Vital Signs Temp Pulse Pulse Resp BP BP Pulse Ox 10/22/21 07:39 36.6 C 70 18 146/75 H 96 10/22/21 04:52 36.6 C 70 14 156/83 H 10/22/21 03:50 36.5 C 74 16 149/77 H 97 10/22/21 02:50 36.8 C 78 16 147/81 H 98 10/22/21 02:20 36.4 C L 85 16 153/77 H 98 10/22/21 02:05 36.6 C 86 16 146/77 H 96 10/22/21 01:46 36.8 C 77 18 152/81 H 97 Laboratory Results Labd reviewed hgb has improved from mid 6 to 8 with transfusion, bun is normal No prior scopes in [facility] system Did follow with gi nutrition in [place]
--- NOTE | 2021-10-22 18:18 | Hospitalist Progress Note ---
Date of Service October 22, 2021 Assessment & Plan (1) Anemia: Plan: 71yo female presenting with symptomatic anemia - Hgb=6.3, Hct=24.2, microcytic with MCV=63. No history of prior. No obvious source of blood loss. Hemoccult is NEGATIVE in ER. Severe iron deficiency anemia Started on IV iron Hemoglobin today is 8.5 Consulted with GI recommend to discharge the patient if hemoglobin is stable tomorrow to have outpatient EGD colonoscopy (2) Hypothyroidism: Plan: Chronic. Synthroid recently increased by PCP -Continue Synthroid 112mcg po daily (3) Edema of left lower extremity: Plan: Currently patient is chronic we will check for BNP started on low-dose Lasix Admission and Anticipated Discharge Date Admission Date: October 21, 2021 Subjective No complaint, today denied having a dark stool, blood work-up was consistent with iron deficiency anemia and severe Review of Systems Review of Systems: General: No malaise no weakness Neck: No tenderness no pain HEENT: No eye discharge no ear discharge Chest: No chest pain, no palpitation GI: Not distended, no nausea no vomiting Extremities: No edema no tenderness Neurology: No headache no weakness Psychiatric: No depression no anxiety Physical Exam Physical Exam: General: patient resting comfortably, NAD, non-toxic in appearance, AA&O x 4 Skin: warm, dry, intact, no rashes or lesions, +pallor conjunctiva, oral mucosa HEENT: NC/AT, PERRL, EOMI, anicteric sclera, conjunctiva without injection, external ear normal to inspection and nontender, nares patent, moist mucus membranes, dentition intact, no oropharyngeal lesions, neck supple, trachea midline, no LAD, no thyromegaly, no JVD Heart: +S1/S2, regular, no m/r/g Lungs: equal air entry bilaterally, no rales/rhonchi/wheezes Abd: +BS, soft, NT/ND, no masses/organomegaly/ascites Ext: warm, 2+ pulses in UE/LE bilaterally, no clubbing/cyanosis, LLE warm and swollen in comparison to RLE Neuro: nonfocal, patient AA&O x 4, speech intact, no facial droop, moving all extremities on command with equal strength 5/5 Results & Data Results & Data ([facility]) Vital Signs (Past 12 Hours) Vital Signs Temp Pulse Resp BP BP Pulse Ox 06/04/22 15:34 166/84 H 156/85 H 10/22/21 15:15 36.7 C 70 16 166/80 H 96 10/22/21 07:39 36.6 C 70 18 146/75 H 96 PG Care Time/CCT Total # of Minutes Spent Total Time Spent with Patient: Total time spent is greater than 50% in coordination of care (as documented) at patient's floor/unit and/or counseling patient: Coding Level of Care Code 62745 Subseq Hosp Care Lvl 3 Diagnoses Anemia D64.9 Anemia type: unspecified type Hypothyroidism E03.9 Edema of left lower extremity R60.0 (1) Anemia Anemia type: unspecified type Qualified Code(s): D64.9 - Anemia, unspecified
[2021-10-22] MEDS ORDERED: IRON SUCROSE 200 MG in 0.9 % SODIUM CHLORIDE 100 ML IV ONE (19:00)
[2021-10-22] MEDS: FUROSEMIDE 40 MG/4 ML VIAL IV SCH (20:17)
[2021-10-23] MEDS: LEVOTHYROXINE SODIUM 112 MCG TABLET PO SCH (06:13)
[2021-10-23 06:42] LABS: BUN Creatinine Ratio 24.2 (10-20); Calcium 9.1 mg/dl (8.5-10.1); Creatinine Clr Calc Pharmacy 75.8 ml/min; Est GFR (Non-African American) 88.9 ml/min; Potassium 3.7 mmol/L (3.5-5.1)
--- NOTE | 2021-10-23 08:14 | Electrocardiogram Report ---
Test Reason : Blood Pressure : / mmHG Vent. Rate : 086 BPM Atrial Rate : 086 BPM P-R Int : 152 ms QRS Dur : 072 ms QT Int : 366 ms P-R-T Axes : 054 031 051 degrees QTc Int : 437 ms Normal sinus rhythm Normal ECG When compared with ECG of 15-JUN-1999 16:58, No significant change was found Confirmed by Richard Do ([id number]) on 10/23/2021 8:13:59 AM Referred By: Chandrika Dickinson Confirmed By:Richard Do
[2021-10-23] MEDS: FUROSEMIDE 40 MG/4 ML VIAL IV SCH (08:22)
[2021-10-23] MEDS: PANTOprazole 40 MG TAB PO SCH (08:22)
--- NOTE | 2021-10-23 12:10 | Communication Note ---
Date of Service: October 23, 2021 Chart reviewed Pt seen briefly, nurse was at bedside No new hgb today, no bun rise Admitted for anemia- no signs of overt gi bleeding. Likely outpt egd/colon will be arranged for her by the [facility] office early next week.
[2021-10-23] MEDS ORDERED: IRON SUCROSE 200 MG in 0.9 % SODIUM CHLORIDE 100 ML IV ONE (16:00)
--- NOTE | 2021-10-23 16:15 | Discharge Summary ---
Date of Service October 23, 2021 Admission HPI Per Admitting Provider Dhara Donald is a 71yo female s/p Gastric Bypass surgery in 2006, B12 deficiency on injections q 3 months, GERD, Hypothyroidism presenting with symptomatic anemia. She had blood work this AM and was notified of low Hgb. She has been experiencing dyspnea with minimal exertion such as stairs as well as palpitations and pulsatile tinnitus in her right ear. She has no prior history of anemia. She denies melena, hematochezia, hematuria, bleeding, bruising, icterus or jaundice. She is post-menopausal, s/p endometrial ablation x 2 (2000 and 2002) with no vaginal bleeding reported. She eats a regular diet with no restriction. Denies chest pain, tightness, syncope, dizziness. Patient has been seeing her PC for concern for progressive bilateral LE edema. She had a bilateral LE venous doppler performed on 09/28/21 which was unremarkable. She is scheduled to have an echocardiogram next week. The only other thing out of the ordinary for her is that she had her 4th Covid shot performed on 10/06/21 after which she felt like her "veins were itchy" all over her body. She developed chills, GOMEZ and felt itchy all over. No rash, edema, SOB. She took a Benadryl with relief. ER Course: NSS Stool Hemoccult NEGATIVE Principal Diagnosis Severe iron deficiency anemia Discharge Exam General: patient resting comfortably, NAD, non-toxic in appearance, AA&O x 4 Skin: warm, dry, intact, no rashes or lesions, +pallor conjunctiva, oral mucosa HEENT: NC/AT, PERRL, EOMI, anicteric sclera, conjunctiva without injection, external ear normal to inspection and nontender, nares patent, moist mucus membranes, dentition intact, no oropharyngeal lesions, neck supple, trachea midline, no LAD, no thyromegaly, no JVD Heart: +S1/S2, regular, no m/r/g Lungs: equal air entry bilaterally, no rales/rhonchi/wheezes Abd: +BS, soft, NT/ND, no masses/organomegaly/ascites Ext: warm, 2+ pulses in UE/LE bilaterally, no clubbing/cyanosis, LLE warm and swollen in comparison to RLE Neuro: nonfocal, patient AA&O x 4, speech intact, no facial droop, moving all extremities on command with equal strength 5/5 Discharge Data Allergies Allergy/AdvReac Type Severity Reaction Status Date / Time venom-honey bee Allergy Verified 10/21/21 21:10 Consultations 10/22/21 09:50 Consult Gastroenterology Routine Hospital Course (1) Anemia: The patient presented to the hospital with severe anemia with a hemoglobin of 6.5 Blood work-up was consistent with iron deficiency anemia with iron level of 16 TIBC of 502, transferrin saturation of only 3 Patient is posttransfusion with 2 unit of packed RBC hematocrit prior to discharge improved to32 Patient has a has a heme negative stool test Patient denied having any dark stool or bloody stool Patient started on IV iron Patient consult with GI Patient has a history of reflux Patient started on PPI and discharge on Protonix GI recommended outpatient EGD colonoscopy, patient consult with Dr. Obrien, Dr. Mason's office will call the patient in coming week to make an schedule for endoscopy procedure Patient discharged on iron oral, recommend to check the iron level in 2 to 4 weeks The patient was advised to follow-up with her insurance claim representative if GI work-up is negative for any source of bleeding, (2) Hypothyroidism: Chronic. Synthroid recently increased by PCP -Continue Synthroid 112mcg po daily (3) Edema of left lower extremity: BNP of 143, patient had a pending echocardiogram on Sunday, patient responded very well to IV Lasix, patient discharged on Lasix 40 mg daily, patient discharged on potassium pill, patient was advised to follow-up with PCP in 1 week to check the creatinine/BUN (4) Iron deficiency anemia: Total Time Total Time Spent Total Time Spent (In Minutes): 45 minutes Discharge Plan Discharge Items Patient Disposition: Home - Self-Care Reason For Visit: SYMPTOMATIC ANEMIA Discharge Diagnosis: severe Iron Def Anemia Condition on Discharge: Fair Activity: Resume your previous activity Lifting: Gradually increase as tolerated Bathing: No limitations Sexual Activity: When tolerated Exercise/Sports: Gradually increase as tolerated Driving/Machine Use: No limitations Weightbearing: Full weightbearing Non-emergency contact: Primary Care Provider and Security Representative Call non-emergency contact if: you have any medication questions and your symptoms worsen Follow-up/Referrals: Chadnrika Dickinson CRNP [Primary Care Provider] - Mikayla Mason MD [Hospitalist] - (severe Iron Def Anemia) Dietitian Info: Avoid Salt Diet: Heart Healthy and Low Sodium (2gm) Addtl Attending Provider Instructions: you have severe Iron deficiency Anemia , you will receive a call from Dr Isabella Degroot office for to schedule you fro endoscopic procedure , please call the office you won't receive a call from the office in the coming week If You water attendant can't make a diagnosis why you have severe Iron deficiency anemia you should follow with a [employer]keeper Laborer. Your Primary care Doctor can help you in this regard Pending Studies at Discharge: Yes Studies:: Iron profile in 3-4 weeks Kidney function in one week Stand-Alone Forms: My [facility] [employer], Smoking Cessation Medications and DC Order Prescriptions: New pantoprazole 40 mg Tablet,Delayed Release (Dr/Ec) 40 mg PO QAM Qty: 60 RF: 0 ferrous sulfate [iron] 325 mg (65 mg iron) tablet 325 mg PO DAILY Qty: 90 RF: 0 potassium chloride 20 mEq tablet,ER particles/crystals 40 meq PO DAILY Qty: 60 RF: 0 Continued levothyroxine 112 mcg capsule 112 mcg PO DAILY Qty: 30 RF: 2 furosemide 40 mg tablet 40 mg PO DAILY PRN (Reason: edema) Qty: 30 RF: 5 calcium carbonate-vit D3-min 600 mg calcium- 400 unit tablet 2 tab PO BID RF: 0 Hair, Skin, Nails with Biotin 7.5-7.5-1,250 mg-unit-mcg tablet,chewable 2 tab PO BID RF: 0 Women's Multivitamin Gummies 200 mcg tablet,chewable 2 tab PO BID RF: 0 cyanocobalamin (vitamin B-12) 1,000 mcg/mL kit 1,000 mcg IM .[id number] RF: 0 Discontinued amoxicillin 500 mg tablet 2,000 mg PO ONCE Qty: 4 RF: 0 Discharge Orders: Discharge Order (Routine); Ordered 10/23/21 Ordered By: Isaias Krishnamurthy/Other Patient Handouts: Iron Supplements, Iron Deficiency Anemia Admission Data Admit Date/Time: 10/21/21 21:59 Attending Provider: Isaias Martin Admit Provider: Catrina Cain Primary Care Provider: Chandrika Dickinson Other Providers: Mikayla Mason Coding Level of Care Code D/C DAY MANAGEMENT >30 MINS Diagnoses Anemia D64.9 Anemia type: unspecified type Hypothyroidism E03.9 Edema of left lower extremity R60.0 Iron deficiency anemia D50.9
[2021-10-23] MEDS ORDERED: ALPRAZolam 0.5 MG TABLET PO STA (17:19)
--- NOTE | 2021-10-25 19:07 | Electrocardiogram Report ---
Test Reason : Blood Pressure : / mmHG Vent. Rate : 070 BPM Atrial Rate : 070 BPM P-R Int : 162 ms QRS Dur : 068 ms QT Int : 416 ms P-R-T Axes : 036 040 047 degrees QTc Int : 449 ms Normal sinus rhythm Normal ECG When compared with ECG of 21-OCT-2021 18:36, No significant change was found Confirmed by Virgil Sahu ([id number]) on 10/25/2021 7:07:02 PM Referred By: Chandrika Dickinson Confirmed By:Virgil Sahu
== END 2021-10-23 19:43 | disposition home or self-care (01) | DRG 812 ==
LOC: ED 18:06 → SUATTDRO 21:59 → INTOOBSV 21:59 → 3E 21:59